=== PATIENT | female | born 1945 | race Caucasian/White ===

== ENCOUNTER 2016-12-29 09:58 | Emergency (ER) | payer MEDICARE, OTHER ==
--- NOTE | 2016-12-29 11:21 | ERNOTE ---
Lower Extremity HPI - Narrative Date of Service: 12/29/16 - General Lower Extremities Pain: foot: right Time Seen by Provider: 12/29/16 11:16 Source: patient, family - spouse Exam Limitations: no limitations - Immun/Allergies/Home Medications Immunizations: IMMUNIZATION HX History of Influenza Vaccine Yes Hx Pneumococcal Vaccination No Allergies/Adverse Reactions: Allergies Allergy/AdvReac Type Severity Reaction Status Date / Time morphine Allergy Verified 12/29/16 10:16 Home Medications: HOME MEDICATIONS Aspirin 325 mg PO DAILY 03/23/15 [Last Taken Unknown] Hydrochlorothiazide [Hydrodiuril] 25 mg PO DAILY 03/23/15 [Last Taken Unknown] Levothyroxine Sodium [Synthroid] 112 mcg PO DAILY 03/23/15 [Last Taken Unknown] Lisinopril [Zestril] 10 mg PO DAILY 03/23/15 [Last Taken Unknown] Naproxen [Naprosyn] 500 mg PO BID PRN #60 tab 03/23/15 [Last Taken Unknown] Simvastatin [Zocor] 20 mg PO HS 03/23/15 [Last Taken Unknown] Colchicine 0.6 mg PO BID #3 tablet 12/29/16 [Last Taken Unknown] HYDROcodone/ACETAMINOPHEN [Hydrocodon-Acetaminophen 5-325] 1 each PO Q6H PRN # 20 tablet 12/29/16 [Last Taken Unknown] - Pain Score Pain Score #1 Pain Score: 10 - History of Present Illness Narrative: 71yo, F, presents to the ER for evaluation of R. foot pain, which started 3 days ago. She then developed swelling to R. foot yesterday. She was having a routine visit with her PCP, Fernanda Cerrato NP today and mentioned the symptoms. Fernanda was concerned due to presence of swelling, pain and bluish discoloration of foot and had difficulty feeling a pulse and sent her to ER. Date (Duration): 12/27/16 Method of Injury: Reports: other - no injury Modifying Factors - (Improves): Reports: other - nothing Modifying Factors - (Worsens): Reports: movement - ambulation Associated Symptoms: Denies: weakness, chest pain, vomiting/diarrhea Other Injuries: Reports: none Review of Systems - Review of Systems Constitutional: Absent: fever, malaise Respiratory: Present: cough - occasional "allergy cough". Absent: shortness of breath, wheezing Cardiology: Present: edema - R. foot. Absent: chest pain Gastrointestinal/Abdominal: Absent: nausea, vomiting Musculoskeletal: Present: joint pain - R. foot. Absent: other - leg pain Skin: Absent: rash - Patient's Past Medical History Patient History - Medical: Arthritis, Depression, GERD, Hypothyroidism Patient History - Cardiac/Respiratory: Hypertension, Hyperlipidemia, Other Patient History - Cancer: No Hx of Cancer Patient History - Surgical Procedures: Cholecystectomy, Hysterectomy, Other Patient History - Other: None - Family History Mother Family History - Medical: Father Family History - Medical: - Social History Living Situations: home Abuse History: No History of abuse Psych History: Hx of Depression Alcohol Use: none Drug Use: none - Immunizations Hx Pneumococcal Vaccination: No History of Influenza Vaccine: Yes Physical Exam - Physical Exam General Appearance: Present: wd/wn, alert, other - appears uncomfortable Respiratory: Present: normal breath sounds, lungs clear. Absent: crackles, rhonchi, wheezing Cardiovascular/Chest: Present: regular rate, rhythm, no murmur. Absent: other - no calf swelling Peripheral Pulses: N=norm/S=strong/W=weak/B=bound/A=absent: Dorsalis-pedis (R): Strong - bounding, doppler pulses R. pedal and R. posterior tibial both present Extremity Exam: Present: pedal edema - L. foot, bony tenderness - with light touch along base of R. great toe and anterior foot, other - mild pale erythema to R. foot, cap refill immeidate to all toes R. foot Neurological Exam: Present: alert, oriented Skin Exam: Present: normal color, warm/dry ED Progress - Date and Time Seen: Date and Time: 12/29/16 12:[address] Medellin re: HPI, exam findings and xray reports. He recommends tx for gout and have her call to schedule f/u next week due to reported sclerosis on xray. Post op shoe as needed for comfort. 12/29/16 1:10 Post op shoe applied by nurse. Pt notes improvement of pain with shoe in place. She does reports improvement of pain with rx pain meds today. She requests medication to take at home. Reviewed dc instructions and plan - Results and Orders Patient's Lab Results:: I have reviewed the patient's lab results. - Vital Signs Patient's Vital Signs:: I have reviewed the patient's vital signs. Vital Signs: Vital Signs 12/29/16 10:03 Temperature 36.4 C L Pulse Rate 83 Respiratory 12 Rate Blood Pressure 161/103 O2 Sat by Pulse 96 Oximetry - X-Ray X-Ray #2 X-Ray: foot Interpretation: Reviewed by me X-ray Comments: [facility] PATIENT RADIOLOGY STUDY REPORT Patient Patient Name:SHAHEED WATTERS Date: 1945 Sex: F Order Number: [id number] Unique Exam ID: [id number] Exam Requested: [id number] - Foot 3 Views RT * Date Scheduled: 12-29-2016 11:07 AM Study Priority: Requesting Service: Requesting Physician: Dayanara Hollis Reason for Exam: tenderness, swelling Radiological Report : [address] [address] NAME: SHAHEED WATTERS : 1945 MR #: [id number] CC: Fernanda Cerrato CNP LOC: ER ADM DATE: X-RAY REPORT [id number] RAD/Foot 3 Views RT * Exam Date: 12/29/2016 11:07 Ordering Physician: Dayanara Hollis HISTORY: tenderness, swelling THREE VIEW RIGHT FOOT COMPARISON: None Technique: AP, oblique, and lateral views of the foot were obtained. Findings: The phalanges and interphalangeal joints are normal in appearance on the AP and oblique projections; there is overlap on the lateral study. There is marked narrowing of the first metatarsal/phalangeal joint with associated spurring and subchondral cyst formation. There is associated swelling around the joint. The remaining metatarsal/phalangeal joints are maintained. The metatarsals are intact. The tarsal bones demonstrate normal alignment and I' m not convinced of a definable acute tarsal bone abnormality. I'm not convinced of significant soft tissue swelling. IMPRESSION: 1. MARKED NARROWING OF THE FIRST METATARSAL/PHALANGEAL JOINT WITH ASSOCIATED SPURRING AND SUBCHONDRAL SCLEROSIS. THESE FINDINGS ARE MOST LIKELY CHRONIC, BUT A SUPERIMPOSED INFECTION OR ACUTE ETIOLOGY CANNOT BE TOTALLY EXCLUDED. 2. SOFT TISSUE SWELLING INVOLVING THE GREAT TOE/FIRST METATARSAL/PHALANGEAL JOINT. Electronically signed by Ramon Ho M.D.. Ramon Ho MD Dict: 12/29/16 1201 Typed: 12/29/16 1201/ 12/29/16 1204 12/29/16 1207 , Approved by: Ramon Ho Approval Date: 12-29-2016 Approval Time: 12:01 PM THIS REPORT WAS RECEIVED FROM THE [employer] SYSTEM X-Ray #1 X-Ray: ankle Interpretation: Reviewed by me X-ray Comments: [facility] PATIENT RADIOLOGY STUDY REPORT Patient Patient Name:SHAHEED WATTERS Date: 1945 Sex: F Order Number: [id number] Unique Exam ID: [id number] Exam Requested: [id number] - Ankle Minimum 3 Views RT * Date Scheduled: 12-29-2016 11:29 AM Study Priority: Requesting Service: Requesting Physician: Chloé Peraza Reason for Exam: tenderness Radiological Report : [place] [address] NAME: SHAHEED WATTERS : 1945 MR #: [id number] CC: Fernanda Cerrato CNP LOC: [facility] DATE: X-RAY REPORT [id number] RAD/Ankle Minimum 3 Views RT * Exam Date: 12/29/2016 11:29 Ordering Physician: Chloé Peraza HISTORY: tenderness THREE VIEW RIGHT ANKLE COMPARISON: None Technique: AP, oblique, and lateral views of the ankle were obtained. Findings: The ankle mortise is maintained. The articulating surface of the talus is maintained. The distal aspects of the tibia and fibula within normal limits. The proximal 5th metatarsal is normal in appearance on the lateral view. The visualized tarsal bones are grossly normal in appearance; if there is clinical concern, followup three view foot examination is recommended. IMPRESSION: 1. NO ACUTE OSSEOUS ABNORMALITY Electronically signed by Ramon Ho M.D.. Ramon Ho MD Dict: 12/29/16 1147 Typed: 12/29/16 1147/ 12/29/16 1155 12/29/16 1158 , Approved by: Ramon Ho Approval Date: 12-29-2016 Approval Time: 11:47 AM THIS REPORT WAS RECEIVED FROM THE [employer] SYSTEM - Progress/Reassessment Chief Complaint: Lower Extremity Pain/ Injury Progress:: Improved Progress Note-Subjective: 12/29/16 13:33 [facility] PATIENT RADIOLOGY STUDY REPORT Patient Patient Name:SHAHEED WATTERS Date: 1945 Sex: F Order Number: [id number] Unique Exam ID: [id number] Exam Requested: [id number] - Ankle Minimum 3 Views RT * Date Scheduled: 12-29-2016 11:29 AM Study Priority: Requesting Service: Requesting Physician: Chloé Peraza Reason for Exam: tenderness Radiological Report : [facility] [address] [address] NAME: SHAHEED WATTERS : 1945 MR #: [id number] CC: Fernanda Cerrato CNP LOC: [facility] DATE: X-RAY REPORT [id number] RAD/Ankle Minimum 3 Views RT * Exam Date: 12/29/2016 11:29 Ordering Physician: Chloé Peraza HISTORY: tenderness THREE VIEW RIGHT ANKLE COMPARISON: None Technique: AP, oblique, and lateral views of the ankle were obtained. Findings: The ankle mortise is maintained. The articulating surface of the talus is maintained. The distal aspects of the tibia and fibula within normal limits. The proximal 5th metatarsal is normal in appearance on the lateral view. The visualized tarsal bones are grossly normal in appearance; if there is clinical concern, followup three view foot examination is recommended. IMPRESSION: 1. NO ACUTE OSSEOUS ABNORMALITY Electronically signed by Ramon Ho M.D.. Ramon Ho MD Dict: 12/29/16 1147 Typed: 12/29/16 1147/ 12/29/16 1155 12/29/16 1158 , Approved by: Ramon Ho Approval Date: 12-29-2016 Approval Time: 11:47 AM THIS REPORT WAS RECEIVED FROM THE [employer] SYSTEM Departure Clinical Impression: Subchondral sclerosis Gout Qualifiers: Gout site: toe Gout etiology: unspecified cause Chronicity: acute Laterality: right Qualified Code(s): M10.9 - Gout, unspecified - Departure Disposition: Home self-care Condition: Good Instructions: Gout, [id number] Additional Instructions: Start gout medication today as ordered Rest, ice and elevate foot to help with pain May wear post-op shoe as needed for pain You had bounding pulses in your foot at the emergency room and your Doppler pulses were strong as well I did review your xray results with Dr. Medellin and he wants you to call their office to schedule follow up next week Seek re-evaluation sooner for any new or concerning symptoms Referrals: Fernanda Cerrato CNP [Primary Care Provider] - Rasheed Medellin MD [Staff Physician] - Prescriptions: Colchicine 0.6 mg PO BID #3 tablet HYDROcodone/ACETAMINOPHEN [Hydrocodon-Acetaminophen 5-325] 1 each PO Q6H PRN # 20 tablet PRN Reason: Pain
[2016-12-29] MEDS ORDERED: IBUPROFEN 400 MG TABLET PO ONE (11:30)
[2016-12-29] MEDS ORDERED: HYDROcodone/ACETAMINOPHEN 1 EACH TABLET PO ONE (11:30)
[2016-12-29] MEDS ORDERED: HYDROcodone/ACETAMINOPHEN 1 EACH TABLET ONE (11:49)
[2016-12-29] MEDS ORDERED: IBUPROFEN 600 MG TABLET ONE (11:49)
[2016-12-29 11:55] LABS: Hematocrit 44.8 % (37.0-47.0); Hemoglobin 14.9 gm/dL (12.5-16.0); Mean Cell Volume 81.8 fl (78-100); Mean Corpuscular Hemoglobin 27.2 pg (27-31); Mean Corpuscular Hgb Conc 33.3 g/dl (32-36); Mean Platelet Volume 11.4 fl (6.0-9.5); Neutrophil # 9.1 K/mm3 (1.3-6.0); Neutrophil % 71.4 % (42-75.0); Platelet Count 214 K/mm3 (150-450); Red Blood Count 5.48 M/mm3 (4.2-5.4); Red Cell Distribution Width 13.2 % (11.5-14.0); White Blood Count 12.7 K/mm3 (4.0-10.5)
[2016-12-29 12:13] LABS: Anion Gap 15.1 mmol/L (6.8-13.8); BUN/Creatinine Ratio 18.3 (9.0-21.6); Calcium * 9.6 mg/dL (7.9-10.9); Carbon Dioxide 26.6 mmol/L (24-32.6); Potassium 3.7 mmol/L (3.4-4.6); Uric Acid 9.4 mg/dL (2.6-7.2)
[2016-12-29 14:54] VITALS: BP 149/91
== END 2016-12-29 13:30 | disposition home or self-care (01) ==
LOC: ER 09:58
DX: M10.9 Gout, unspecified (principal); M89.8X9 Other specified disorders of bone, unspecified site

== ENCOUNTER 2017-01-30 09:24 | Day surgery (SDC) | payer MEDICARE, OTHER ==
[~2017-01-30 09:24] MED LIST: RINGER'S SOLUTION,LACTATED 1,000 ML IV PRN; ceFAZolin SODIUM 1 GM VIAL IV PRN
[2017-01-30] MEDS ORDERED: BUPIVACAINE HCL 50 ML VIAL IJ ONE ×2 (11:25)
--- NOTE | 2017-01-30 12:12 | POSTOP NO ---
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
[2017-01-30 15:20] VITALS: BP 113/76
== END 2017-01-30 09:25 | disposition home or self-care (01) ==
LOC: AMB 09:24
PROVIDERS: ATTEND Orthopaedic Surgery
PROC: 0QBN0ZZ Excision of Right Metatarsal, Open Approach (ICD-10-PCS; 2017-01-30)
PROC: 0SGM04Z Fusion of Right Metatarsal-Phalangeal Joint with Internal Fixation Device, Open Approach (ICD-10-PCS; principal; 2017-01-30 12:35)
DX: M10.9 Gout, unspecified (principal); M19.071 Primary osteoarthritis, right ankle and foot; I10 Essential (primary) hypertension; E11.9 Type 2 diabetes mellitus without complications; E03.9 Hypothyroidism, unspecified; E78.2 Mixed hyperlipidemia; E66.9 Obesity, unspecified; Z68.35 Body mass index [BMI] 35.0-35.9, adult; Z87.891 Personal history of nicotine dependence
CPT/HCPCS: 28750; C1713